=== PATIENT | female | born 1975 | race African-American/Black ===

== ENCOUNTER 2017-05-04 23:43 | Emergency (ER) | payer SELFPAY ==
[~2017-05-04] VITALS: Ht 162.6 cm; Wt 44.5 kg
[2017-05-05] MEDS ORDERED: ACETAMINOPHEN 325MG TABLET PO ONE (03:00)
[2017-05-05 05:05] VITALS: BP 123/79
== END 2017-05-05 05:25 | disposition left against medical advice (07) ==
LOC: ER 23:43
DX: O20.9 Hemorrhage in early pregnancy, unspecified (principal); O99.331 Smoking (tobacco) complicating pregnancy, first trimester; R10.9 Unspecified abdominal pain; F17.200 Nicotine dependence, unspecified, uncomplicated; Z3A.12 12 weeks gestation of pregnancy
CPT/HCPCS: 81025; 99283; Z7610

== ENCOUNTER 2017-05-06 08:07 | Emergency (ER) | payer SELFPAY ==
[~2017-05-06] VITALS: Ht 157.5 cm; Wt 49.0 kg
[2017-05-06 08:25] VITALS: BP 108/74
[2017-05-06] MEDS ORDERED: ACETAMINOPHEN 325MG TABLET PO ONE (08:45)
== END 2017-05-06 09:18 | disposition home or self-care (01) ==
LOC: ER 08:56
DX: K06.8 Other specified disorders of gingiva and edentulous alveolar ridge (principal); Z98.890 Other specified postprocedural states
CPT/HCPCS: 99282

== ENCOUNTER 2017-07-18 09:43 | Emergency (ER) | payer MEDICARE, MEDICAID ==
[~2017-07-18] VITALS: Ht 162.6 cm; Wt 49.8 kg
[2017-07-18 09:44] VITALS: BP 106/71
== END 2017-07-18 13:20 | disposition left against medical advice (07) ==
LOC: ER 13:12
DX: L29.8 Other pruritus (principal); R21 Rash and other nonspecific skin eruption; R55 Syncope and collapse; R42 Dizziness and giddiness; F17.200 Nicotine dependence, unspecified, uncomplicated
CPT/HCPCS: 99282

== ENCOUNTER 2018-01-11 03:32 | Emergency (ER) | payer MEDICARE, MEDICAID | END 2018-01-11 05:36 | disposition left against medical advice (07) | LOC: ER 03:32 | DX: F32.9 Major depressive disorder, single episode, unspecified (principal); Z53.21 Procedure and treatment not carried out due to patient leaving prior to being seen by health care provider ==